=== PATIENT | male | born 1950 | race Two or more races ===

== ENCOUNTER → 2022-10-31 | Emergency (ER) | payer OTHER ==
[~2022-10-31] VITALS: Ht 182.9 cm; Wt 113.6 kg
[2022-10-31 23:50] VITALS: BP 170/90
== END | disposition left against medical advice (07) ==
LOC: ER 23:38
DX: S90.561A Insect bite (nonvenomous), right ankle, initial encounter (principal); R51.9 Headache, unspecified; Z53.21 Procedure and treatment not carried out due to patient leaving prior to being seen by health care provider; W57.XXXA Bitten or stung by nonvenomous insect and other nonvenomous arthropods, initial encounter; Y93.89 Activity, other specified; Y92.89 Other specified places as the place of occurrence of the external cause; Y99.8 Other external cause status